=== PATIENT | female | born 1975 | race Caucasian/White ===

== ENCOUNTER → 2024-01-01 10:24 | Outpatient (REF) | payer BC, SELFPAY | LOC: HWWDC 10:24 | PROVIDERS: ATTENDING PHYSICIAN Obstetrics & Gynecology; FAMILY PHYSICIAN Family Medicine | DX: Z12.31 Encounter for screening mammogram for malignant neoplasm of breast (principal) | CPT/HCPCS: 77063; 77067 ==

== ENCOUNTER → 2025-02-24 09:07 | Outpatient (REF) | payer BC, SELFPAY | LOC: HWWDC 09:07 | PROVIDERS: ATTENDING PHYSICIAN Student in an Organized Health Care Education/Training Program; FAMILY PHYSICIAN Family Medicine | DX: Z12.31 Encounter for screening mammogram for malignant neoplasm of breast (principal) | CPT/HCPCS: 77063; 77067 ==

== ENCOUNTER → 2025-09-08 13:44 | Outpatient (REF) | payer BC, SELFPAY | LOC: WDC 13:44 | PROVIDERS: ATTENDING PHYSICIAN Nurse Practitioner Family | DX: R92.30 Dense breasts, unspecified (principal); Z80.3 Family history of malignant neoplasm of breast | CPT/HCPCS: 76641 ==

== ENCOUNTER → 2025-09-10 13:07 | Outpatient (REF) | payer BC, SELFPAY | LOC: RAD 13:07 | PROVIDERS: ATTENDING PHYSICIAN Nurse Practitioner Family | DX: Z13.820 Encounter for screening for osteoporosis (principal); N62 Hypertrophy of breast | CPT/HCPCS: 77080 ==